=== PATIENT | female | born 1935 | race Hispanic/Latino ===

== ENCOUNTER → 2023-01-04 | Outpatient (CLI) | payer OTHER ==
[~2023-01-04] MED LIST: AMLO-257 PO; LISI20TA24 PO; METO-408 PO; SIMV-43 PO
== END | disposition home or self-care (01) ==
LOC: SHCH 10:16
PROVIDERS: ATTEND Internal Medicine Cardiovascular Disease
DX: I35.8 Other nonrheumatic aortic valve disorders (principal); I11.9 Hypertensive heart disease without heart failure; E78.5 Hyperlipidemia, unspecified
CPT/HCPCS: 93306